=== PATIENT | female | born 1990 | race Caucasian/White ===

== ENCOUNTER 2020-09-02 11:30 | Emergency (ER) | payer MEDICAID ==
[~2020-09-02] VITALS: Ht 177.8 cm; Wt 54.7 kg
[2020-09-02 11:41] VITALS: BP 102/72
[2020-09-02] MEDS ORDERED: CHLO473M3 PO (12:31)
[2020-09-02] MEDS ORDERED: PENI500T2 PO (12:31)
[2020-09-02] MEDS ORDERED: HYDR-3965 PO (12:31)
== END 2020-09-02 12:48 | disposition home or self-care (01) ==
LOC: ER 11:30
DX: K08.89 Other specified disorders of teeth and supporting structures (principal); Z88.5 Allergy status to narcotic agent; Z79.2 Long term (current) use of antibiotics; Z79.899 Other long term (current) drug therapy
CPT/HCPCS: 99283